=== PATIENT | female | born 1960 | race Caucasian/White ===

== ENCOUNTER 2017-06-06 11:34 | Emergency (ER) | payer BC ==
[~2017-06-06] VITALS: Ht 165.1 cm; Wt 83.5 kg
[~2017-06-06 11:34] MED LIST: SYNT25TA PO; TAMO20TA4 PO
[2017-06-06 11:49] VITALS: BP 118/58; PULSE 71; RESP 16; TEMP 98.1; O2SAT 96
[2017-06-06] MEDS ORDERED: LEVO25TA4 PO (11:58)
[2017-06-06] MEDS ORDERED: TAMO20TA6 PO (11:58)
[2017-06-06] MEDS ORDERED: DOXY100C PO (13:10)
--- NOTE | 2017-06-06 13:10 | PD ---
HPI Chief Complaint: Skin Problem Time Seen by Provider: 13:03 Travel History International Travel<30 days: No Contact w/Intl Traveler<30days: No Traveled to known affect area: No History of Present Illness HPI 56 year old female here for evaluation of a possible tick bite to her left abdomen 5 days ago. She did not observe the tick on her abdomen. She pulled multiple tick off her dog the same day. She noticed a circular area of redness surrounding the insect bite which prompted her to come in for evaluation today. She denies fever or chills. She is concerned of possible Lyme's. She has no other symptom. PFSH Past Medical History Arthritis: Yes Cancer: Yes (breast) Chemotherapy: No Diminished Hearing: No Immunizations Current: Yes Radiation Therapy: Yes Thyroid Disease: Yes (hypothyroidism) Tetanus Vaccination: < 5 Years Influenza Vaccination: No ?: Not LMP: 05/13/17 Past Surgical History Mastectomy: Yes (left lumpectomy, 2012) Other Surgery: Yes (bunionectomy right foot 2003) Social History Alcohol Use: Yes (occasional , mix drinks or wine, beer) Tobacco Use: No (quit 25 years ago was a 1 ppd smoker) Substance Use: No Allergies-Medications (Allergen,Severity, Reaction): Coded Allergies: amoxicillin (Unverified Allergy, Severe, Diarrhea, 06/06/17) Uncoded Allergies: NSAIDS (Allergy, Severe, UPSET STOMACH, 06/06/17) .. Reported Meds & Prescriptions Reported Meds & Active Scripts Active Doxycycline Hyclate 100 Mg Cap 100 Mg PO BID Reported Levothyroxine (Levothyroxine Sodium) 25 Mcg Tab 25 Mcg PO DAILY Tamoxifen (Tamoxifen Citrate) 20 Mg Tab 20 Mg PO DAILY Review of Systems Except as stated in HPI: all other systems reviewed are Neg Physical Exam Narrative GENERAL: Alert female in no distress. SKIN: Warm and dry. The anterior abdomen she has a 5 cm diameter circular area of erythema with a central scab. No induration or fluctuance. HEAD: Normocephalic. EYES: No scleral icterus. No injection or drainage. NECK: Supple, trachea midline. Data Data Last Documented VS Vital Signs Date Time Temp Pulse Resp B/P (MAP) Pulse Ox O2 Delivery O2 Flow Rate FiO2 06/06/17 11:49 98.1 71 16 118/58 (78) 96 Orders Orders Ed Discharge Order (06/06/17 13:13) [facility] Medical Decision Making Medical Screen Exam Complete: Yes Emergency Medical Condition: Yes Differential Diagnosis Insect bite, cellulitis, abscess Narrative Course 56-year-old female here for evaluation of a possible tick bite to her left abdomen 5 days ago. She has a 5 cm circular area of erythema with central scab at the site of the tick bite. There is no evidence of abscess. Patient was on doxycycline instructed to follow-up with her primary doctor for recheck. Diagnosis Primary Impression: Tick bite of abdomen Qualified Codes: S30.861A - Insect bite (nonvenomous) of abdominal wall, initial encounter; W57.XXXA - Bitten or stung by nonvenomous insect and other nonvenomous arthropods, initial encounter Referrals: Primary Care Physician Additional Instructions: Follow-up with her primary doctor for recheck. Scripts Doxycycline Hyclate (Doxycycline Hyclate) 100 Mg Cap 100 MG PO BID for Infection, #20 CAP 0 Refills Prov: Clementina Krishnamurthy 06/06/17 Disposition: 01 DISCHARGE HOME Condition: Stable Clementina Krishnamurthy Jun 06, 2017 13:10
== END 2017-06-06 13:15 | disposition home or self-care (01) ==
LOC: PHEFT 11:34
DX: S30.861A Insect bite (nonvenomous) of abdominal wall, initial encounter (principal); E03.9 Hypothyroidism, unspecified; Z85.3 Personal history of malignant neoplasm of breast; Z87.39 Personal history of other diseases of the musculoskeletal system and connective tissue; W57.XXXA Bitten or stung by nonvenomous insect and other nonvenomous arthropods, initial encounter
CPT/HCPCS: 99283